=== PATIENT | male | born 1970 | race Caucasian/White ===

== ENCOUNTER 2017-09-03 07:21 | Emergency (ER) | payer OTHER ==
[~2017-09-03] VITALS: Ht 180.3 cm; Wt 92.5 kg
[~2017-09-03 07:21] MED LIST: OXCA150T3 PO
[2017-09-03] MEDS ORDERED: SODIUM CHLORIDE 0.9% 1,000 ML IV ONE (07:40)
[2017-09-03] MEDS ORDERED: SODIUM CHLORIDE 0.9% 1,000ML IVBOLUS ONE (08:00)
[2017-09-03 08:05] LABS: HEMATOCRIT 44.6 % (39.2-51.8); HEMOGLOBIN 15.3 g/dL (13.7-18.0); WHITE BLOOD COUNT 7.8 x10^3/uL (3.4-10)
[2017-09-03 08:17] LABS: BLOOD UREA NITROGEN 11 mg/dL (7-18)
[2017-09-03 09:55] VITALS: BP 121/66
== END 2017-09-03 10:15 | disposition home or self-care (01) ==
LOC: ED 10:13
DX: S06.0X1A Concussion with loss of consciousness of 30 minutes or less, initial encounter (principal); R55 Syncope and collapse
CPT/HCPCS: 36415; 70450; 71010; 80048; 82040; 85025; 93005; 96360; 99285; J7030